=== PATIENT | male | born 2000 | race Hispanic/Latino ===

== ENCOUNTER 2023-06-27 02:28 | Emergency (ER) | payer SELFPAY ==
[2023-06-27] MEDS ORDERED: Ketorolac Tromethamine 30 MG/ML VIAL ONE (02:59)
== END 2023-06-27 03:49 | disposition home or self-care (01) ==
LOC: ERS 02:28
DX: R07.89 Other chest pain (principal)
CPT/HCPCS: 71045; 93005; 96372; J1885

== ENCOUNTER 2024-08-11 08:06 | Outpatient (CLI) | payer OTHER | END 2024-08-11 08:07 | disposition home or self-care (01) | LOC: BICRAD 08:06 | PROVIDERS: ATTEND Nurse Practitioner Family | DX: Z20.1 Contact with and (suspected) exposure to tuberculosis (principal) | CPT/HCPCS: 71046 ==